=== PATIENT | male | born 1955 | race Caucasian/White ===

== ENCOUNTER 2018-07-15 16:49 | Inpatient (IN) | payer OTHER ==
[~2018-07-15] VITALS: Ht 175.3 cm; Wt 75.0 kg
--- NOTE | ~2018-07-15 | PROC ---
[facility] [address] [place] [address] PROCEDURE REPORT Name: ANDIE DEL VALLE Room: [address] IN ..#: [id number] Admission: 07/15/18 Attend Phys: Wiley Lucas Discharge: 07/20/18 Date of : 53 Report #: [id number] THIS REPORT FOR: //name// For GI report, please see the Provation report in Perceptive 7 content. By: [id number] Records Staff JUDI /ROCKY
[2018-07-15 16:54] VITALS: BP 90/47
[2018-07-15] MEDS ORDERED: FISH OIL 1,001000 M2 PO (17:04)
[2018-07-15] MEDS ORDERED: FLAX SEED OIL1000 MG PO (17:05)
[2018-07-15] MEDS ORDERED: UNICOMPLEX M TA1 TA1 PO (17:05)
--- NOTE | 2018-07-15 17:08 | NUR ---
PT'S FINGER TIPS ARE WHITE WITH NO CAP REFILL. PT REPORTS NEVER HAVING THAT ISSUE BEFORE.
[2018-07-15 17:29] LABS: HEMATOCRIT 38.5 % (42.0-52.0); MCH 34.5 pg (26.0-34.0); MCHC 33.8 g/dL (28.0-37.0); MCV 102.1 fL (80.0-100.0); MPV 9.3 fl. (7.2-11.1); NUCLEATED RBCS 0 /100WBC; PLATELET COUNT* 173 thou/uL (150-400); RBC 3.78 mil/uL (4.50-6.00); RDW-CV 12.7 % (10.5-14.5); WBC 24.3 thou/uL (4.0-11.0)
[2018-07-15 17:53] LABS: ALBUMIN 2.8 g/dL (3.4-5.0); CALCIUM 11.1 mg/dL (8.5-10.1); POTASSIUM 4.1 mmol/L (3.5-5.1); TOTAL BILIRUBIN 2.3 mg/dL (<0.1-1.0); TOTAL PROTEIN 6.3 g/dL (6.4-8.2)
[2018-07-15 18:04] LABS: ABSOLUTE LYMPHOCYTES 4.1 thou/uL (0.8-5.3); ABSOLUTE MONOCYTES 1.7 thou/uL (0.0-1.2); ABSOLUTE NEUTROPHILS 18.5 thou/uL (1.6-8.1)
[2018-07-15 18:07] LABS: LARGE PLATELETS RARE; PLATELET ESTIMATE ADEQUATE
--- NOTE | 2018-07-15 19:09 | NUR ---
RECIEVED REPORT AND ASSUMED CARE OF PT. PHOTOENGRAVING APPRENTICE WITH PT AT THIS TIME. PT BEING ADMITTED TO ICU.
[2018-07-15 19:36] LABS: APTT 25.3 Seconds (25.0-31.3); INR 1.3; PROTIME 13.4 Seconds (9.20-11.50)
--- NOTE | 2018-07-15 20:48 | NUR ---
REPORT GIVEN TO JOHN PAUL GIRON IN ICU. PT BEING ADMITTED TO ICU.
[2018-07-15 20:55] VITALS: BP 98/70
[2018-07-15 22:00] VITALS: BP 101/67
[2018-07-15 23:01] VITALS: BP 98/66
[2018-07-16] VITALS (15 sets, daily range): BP systolic 102–145; BP diastolic 61–81
[2018-07-16 03:13] LABS: HEMATOCRIT 31.5 % (42.0-52.0); HEMOGLOBIN 10.6 gm/dL (14.0-18.0)
--- NOTE | 2018-07-16 06:35 | NUR ---
PATIENT TO ICU BED 4 AT 2101, DENYING PAIN, NAUSEA, SOA. AFEBRILE, BS 87, MAP >65 ON ARRIVAL. NS @100ML/HR RUNNING TO R AC, NOTICED IT HAS INFILTRATED SHORTLY AFTER ARRIVAL. TRIED SWITCHING IVF SITE TO L AC IV SITE, WOULD ALSO NOT FLUSH. DC'S BOTH IV SITES AND STARTED L FOREARM AND R FOREARM 20G IVs, NS @ 200ML/HR RUNNING TO RFA CONTINUOUSLY. BMX2,BLACK IN COLOR, FIRST ONE LOOSE, SECOND BM SOMEWHAT FORMED. PT DENIES PAIN WHILE HAVING BM, DENIES NAUSEA, DIZZINESS GETTING OUT OF BED TO THE COMMODE. ABLE TO PROUCE 250 ML URINE, LIGHT YELLOW IN COLOR, USES THE URINAL, HAS URGENCY. PATIENT ON 2L WHEN HE CAME TO ICU, ON RA SINCE 299 WITH SPO2>90%. ADDED H$H TO MORNING LABS, HB DOWN TO 10.6 DOWN FROM 13. CALL LIGHT WITHIN REACH, ABLE TO TURN SELF IN BED.
[2018-07-16 09:00] LABS: HEMATOCRIT 28.2 % (42.0-52.0); HEMOGLOBIN 9.6 gm/dL (14.0-18.0); MCH 34.7 pg (26.0-34.0); MCV 102.1 fL (80.0-100.0); MPV 9.3 fl. (7.2-11.1); RBC 2.77 mil/uL (4.50-6.00); WBC 14.3 thou/uL (4.0-11.0)
--- NOTE | 2018-07-16 10:09 | EKG ---
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1955 Requested By: Florentino Alford Order Number: [id number] MD: Carlos Tompkins Measurements Intervals [place] Rate: 109 P: 69 NM: 136 QRS: 19 QRSD: 89 T: 88 QT: 341 QTc: 460 Interpretive Statements Sinus tachycardia Atrial premature complex Nonspecific repol abnormality, diffuse leads No previous ECG available for comparison Electronically Signed On 07-16-2018 10:09:31 SOLARIS ADMINISTRATOR by Carlos Tompkins [email or web address] <ELECTRONICALLY SIGNED> By: Carlos Tompkins MD, [facility] 07/16/18 1009 D: 02/1704 04 Carlos Tompkins MD, FACC /EPI
[2018-07-16 10:38] LABS: CREATININE 2.5 mg/dL (0.6-1.3)
[2018-07-16 10:54] LABS: CALCIUM 8.8 mg/dL (8.5-10.1)
--- NOTE | 2018-07-16 12:13 | NUR ---
Nutrition: Per ICU rounds, pancreatitis is better. Pt has GIB from varices likely. K+ 3, Hgb 9.6, alb 2.8, prealb 17.1. Wt: 165#. Pt assessed for nursing risk 2 points. Unsure of wt hx at this time. Pt was in EGD at time of rounds. NPO currently. No nutrition interventions at this time. Will follow for diet advancement, wt, po tolerance, labs, POC. Mild risk for now, follow up 07/21/18.
--- NOTE | 2018-07-16 14:19 | NUR ---
Agree with students observations. Patient tolerated egd well. Remains alert no changes to mentation. Spoke with Dr Lei PT to transfer to [place] PO well. denies pain or SOA.
--- NOTE | 2018-07-16 14:34 | NUR ---
Pt is A&O. Resides at home with his . Normally active and independent. No DME. No hx of HH or SNF. Goal is home at tx. Pt to have an EGD today. Following
--- NOTE | 2018-07-16 18:36 | NUR ---
PATIENT OFF THE FLOOR FOR SHORT TIME DURING EGD. PATIENT TOLERATED WELL. PATIENT HAS BEEN STABLE THROUGHOUT THE SHIFT. CIWA PRECAUTIONS INITIATED. PATIENT HAS BEEN PLEASANT. PATIENT ONLY HAS ONE IV AT THIS TIME. RECIEVED ORDERS TO TRANSFER PATIENT TO ROOM 204.
--- NOTE | 2018-07-16 20:12 | NUR ---
PATIENT TRANSFERRED TO 204 ON A WHEELCHAIR ACCOMPANIED BY HUMAN RESOURCES TALENT MANAGER AT 1999. PERSONAL ITEMS, CHART, UNUSED MEDS SENT WITH PATIENT. VITLAS WNL, PATIENT ABLE TO WALK TO WHEELCHAIR WITH NO DIFFICULTY. WITH PATIENT. REPORT GIVEN TO MACK OCHOA FOR CONTINUED CARE. PT DENIES CONCERNS/QUESTIONS AT THIS TIME.
[2018-07-16 23:08] LABS: HEPATITIS B SURFACE AG Negative (Negative)
[2018-07-17] VITALS: BP 138/68
[2018-07-17 04:00] VITALS: BP 144/79
--- NOTE | 2018-07-17 05:09 | NUR ---
PT TRANSFERRED FROM ICU AROUND 1999 IN WHEELCHAIR. COMPLETED ASSESSMENT CHARTED. ABLE TO MAKE NEEDS KNOWN. AT BEDSIDE. NO C/O PAIN OR DISCOMFORT. UP WITH STANDBY ASSIST DUE TO RISK OF DIZZINESS FROM BLEED. PT RESTING IN BED AT THIS TIME. WILL CONTINUE TO MONITOR.
[2018-07-17 05:23] LABS: HEMATOCRIT 24.6 % (42.0-52.0); HEMOGLOBIN 8.4 gm/dL (14.0-18.0); MCHC 34.1 g/dL (28.0-37.0); MCV 102.5 fL (80.0-100.0); MPV 9.4 fl. (7.2-11.1); RBC 2.39 mil/uL (4.50-6.00); WBC 9.9 thou/uL (4.0-11.0)
[2018-07-17 06:01] LABS: ALBUMIN 2.1 g/dL (3.4-5.0); CREATININE 1.6 mg/dL (0.6-1.3); MAGNESIUM 2.2 mg/dL (1.8-2.4); TOTAL BILIRUBIN 0.6 mg/dL (<0.1-1.0)
[2018-07-17 06:07] LABS: POTASSIUM 2.6 mmol/L (3.5-5.1)
[2018-07-17 08:00] VITALS: BP 131/65
[2018-07-17 11:31] VITALS: BP 135/83
[2018-07-17 15:40] VITALS: BP 140/74
--- NOTE | 2018-07-17 17:18 | NUR ---
PT UP IN ROOM WITH STEADY GAIT. IVF INFUSING. LOW K REPLACED PER PROTOCOL. POOR APPETITE. DENIES ABD PAIN. AT BS AND UPDATED ON PLAN OF CARE
[2018-07-17 20:00] VITALS: BP 140/80
[2018-07-18] VITALS: BP 137/84
--- NOTE | 2018-07-18 03:50 | NUR ---
ASSUMED PT CARE AT 1930. ASSESSMENT COMPLETED CHARTED. ABLE TO MAKE NEEDS KNOWN. NO C/O PAIN OR DISCOMFORT. UP AD MATILDE IN ROOM, IVF INFUSING PER P.O. VSS. PT RESTING IN BED AT THIS TIME. WILL CONTINUE TO MONITOR.
[2018-07-18 04:00] VITALS: BP 129/72
[2018-07-18 06:38] LABS: CALCIUM 7.8 mg/dL (8.5-10.1); CREATININE 1.2 mg/dL (0.6-1.3); MAGNESIUM 2.3 mg/dL (1.8-2.4); POTASSIUM 3.2 mmol/L (3.5-5.1); TOTAL BILIRUBIN 0.5 mg/dL (<0.1-1.0)
[2018-07-18 08:00] VITALS: BP 146/84
[2018-07-18 11:30] VITALS: BP 141/75
[2018-07-18 15:26] VITALS: BP 150/91
--- NOTE | 2018-07-18 17:25 | NUR ---
PT UP IN ROOM WITH STEADY GAIT. TOLERATING REGULAR DIET. DENIES ABD PAIN. IVF INFUSING
[2018-07-18 20:00] VITALS: BP 173/89
[2018-07-19] VITALS: BP 135/75
[2018-07-19 04:00] VITALS: BP 125/64
--- NOTE | 2018-07-19 05:17 | NUR ---
ASSUMED PT CARE AT 1930. ASSESSMENT COMPLETED CHARTED. ABLE TO MAKE NEEDS KNOWN. PT RESTING IN BED AT THIS TIME. NO C/O PAIN OR DISCOMFORT. IV FLUIDS INFUSING PER P.O. UP AD MATILDE, POSS D/C TODAY. WILL CONTINUE TO MONITOR.
[2018-07-19 05:29] LABS: ALBUMIN 1.9 g/dL (3.4-5.0); CALCIUM 7.2 mg/dL (8.5-10.1); CREATININE 1.1 mg/dL (0.6-1.3); MAGNESIUM 1.6 mg/dL (1.8-2.4); POTASSIUM 3.6 mmol/L (3.5-5.1); TOTAL BILIRUBIN 0.3 mg/dL (<0.1-1.0); TOTAL PROTEIN 4.8 g/dL (6.4-8.2)
[2018-07-19 08:37] VITALS: BP 131/86
--- NOTE | 2018-07-19 11:33 | NUR ---
PT A/O, CIWA 0. TELE TRACKING NSR AND ALL VSS ON ROOM AIR. PT DENIES CP, SOA AND ABDOMINAL PAIN. PT TOLERATING PO. STATES BM YESTERDAY WAS BROWN AND BACK TO NORMAL. DENIES ANY BLEEDING. LOOKING FORWARD TO DC IN NEXT DAY OR TWO. EDUCATED ON SAFETY AND PLAN OF CARE. PLEASE SEE ASSESSMENT FOR ADDITIONAL INFORMATION. WILL CONTINUE TO MONITOR
[2018-07-19 12:00] VITALS: BP 143/88
[2018-07-19 20:00] VITALS: BP 132/72
[2018-07-20] VITALS: BP 137/62
--- NOTE | 2018-07-20 01:52 | NUR ---
PT ALERT ORIENTED. ABD SOFT. BS +. DENIES PAIN. NS AT 100MLS/HR. VOIDS DARK YELLOW PER URINAL. ON RA.
[2018-07-20 04:40] LABS: HEMATOCRIT 21.7 % (42.0-52.0); HEMOGLOBIN 7.6 gm/dL (14.0-18.0); MCH 35.2 pg (26.0-34.0); MCHC 34.9 g/dL (28.0-37.0); MPV 8.6 fl. (7.2-11.1); RBC 2.15 mil/uL (4.50-6.00); RDW-CV 12.5 % (10.5-14.5); WBC 7.3 thou/uL (4.0-11.0)
[2018-07-20 05:19] LABS: ALBUMIN 1.7 g/dL (3.4-5.0); CALCIUM 7.1 mg/dL (8.5-10.1); MAGNESIUM 1.4 mg/dL (1.8-2.4); POTASSIUM 3.3 mmol/L (3.5-5.1); TOTAL BILIRUBIN 0.4 mg/dL (<0.1-1.0); TOTAL PROTEIN 4.6 g/dL (6.4-8.2)
[2018-07-20 09:00] VITALS: BP 136/73
--- NOTE | 2018-07-20 10:59 | NUR ---
ASSUMED PT CARE AT 0700 PT IS ALERT AND ORIENTED X 4 PT DENIES PAIN OR SOA ON RA, PT IS UP AD MATILDE PT IS MEDICAL SURGICAL STATUS, PT IS PROGRESSING TOWARDS GOALS PT IS CLEARED FOR DISCHARGE, WILL CONTINUE TO MONITOR
[2018-07-20] MEDS ORDERED: CARAFATE 11 GM/10 M1 PO (11:05)
[2018-07-20] MEDS ORDERED: PANTOPRAZOLE SO40 M1 PO (11:05)
--- NOTE | 2018-07-20 11:08 | PATH ---
[address] [address] PATHOLOGY RPT PROCEDURE Name: ANDERS TAMAYO Room: [address] IN M.R.#: [id number] Admission: 07/15/18 Date of : 53 Discharge: Report #: [id number] Path Case #: [id number] LCA Accession Number: [id number] . 01 Material submitted: . PART A: DUODENAL BIOPSY PART B: DISTAL ESOPHAGUS BIOPSY . 01 Clinical history: . None provided . 02 Diagnosis: A. Duodenal biopsy: - Moderate, nonspecific active duodenitis, negative for granulomas, viral inclusions and dysplasia/adenomatous change. . B. Distal esophagus biopsy: - Minimal, benign esophageal mucosa and predominantly benign glandular/columnar mucosa with abundant goblet cells compatible with Guo's metaplasia and with mild chronic and active inflammation typical of reflux, negative for granulomas and dysplasia. . (MARLON:danielle; 07/19/2018) MBRosaura/07/19/2018 . 02 Electronically signed: . Brcye Briones MD, Pathologist NPI- [id number] . 01 Gross description: . A. Received in formalin labeled "Anders Tamayo, duodenal biopsy," are 4 segments of morales soft tissue measuring 0.9 x 0.6 x 0.2 cm in aggregate dimensions and ranging from 0.3 to 0.4 cm in maximum dimension. The specimen is submitted entirely in cassette A1. . B. Received in formalin labeled "Anders Tamayo, distal esophagus biopsy," is a single segment of morales soft tissue measuring 0.3 cm in maximum dimension. The specimen is entirely submitted in cassette B1. (TSD; 07/16/2018) TOB/TOB . 02 Pathologist provided ICD-10: K29.80, K22.70 . 02 CPT . 959935, 788077 Specimen Comment: A courtesy copy of this report has been sent to Specimen Comment: [phone], , [place] [address] PATHOLOGY RPT PROCEDURE Name: ANDERS TAMAYO Room: [address] IN ..#: [id number] Admission: 07/15/18 Date of : 53 Discharge: Report #: [id number] Path Case #: [id number] Specimen Comment: Report sent to ,DR GUTIERREZ / DR VILLA Specimen Comment: A duplicate report has been generated due to demographic updates. Performed at: 01 [facility] [address], [place], [place] [id number] MD Brooks Rao MD Phone: [phone] Performed at: 02 [facility] [place] [address] [place], [place] [id number] MD Bryce Briones MD Phone: [phone]
--- NOTE | 2018-07-20 11:36 | NUR ---
Pt discharging to home today, family to provide dc transportation. CM provided Pt with Good Rx coupons for his prescriptions, Pt states that he will be able to afford his meds.
[2018-07-20 11:37] VITALS: BP 104/74
--- NOTE | 2018-07-20 18:30 | CON ---
[address] [address] CONSULTATION Name: ANDIE DEL VALLE Room: [address] IN .R.#: [id number] Admission: 07/15/18 Attend Phys: Wiley Lucas Discharge: 07/20/18 Date of : 53 Report #: [id number] THIS REPORT FOR: //name// CC: Wayne Estrada DATE OF SERVICE: 07/15/2018 ADDENDUM This is a 63-year-old male who came in to hospital with GI bleed and found to have sepsis and pancreatitis. The patient reports symptoms of nausea, vomiting and hematemesis followed by melanotic stool the following day. He reports history of chronic NSAID use and his kidney function was compromised. He also has leukocytosis and CT suggestive of thickening of the colon in the sigmoid region. We will perform an upper endoscopy as we continue the patient on PPI. We will continue monitoring lipase and at some point, we will consider a colonoscopy as the patient has never had a colonoscopy in the past. <ELECTRONICALLY SIGNED> By: Pop Carpio MD 07/20/18 1830 1020 [id number] Carpio MD /nt
--- NOTE | 2018-07-20 18:30 | CON ---
[address] [address] CONSULTATION Name: ANDIE DEL VALLE Room: [address]#: [id number] Admission: 07/15/18 Attend Phys: Wiley Lucas Discharge: 07/20/18 Date of : 53 Report #: [id number] THIS REPORT FOR: //name// CC: Wayne Estrada DICTATED BY: Breanna Durán [facility] DATE OF SERVICE: 07/16/2018 The patient does not have a PCP. Please note at the time of this dictation, the patient was seen and physically examined by myself. REASON FOR CONSULTATION: GI bleed, abnormal CT findings. HISTORY OF PRESENT ILLNESS: This is a 63-year-old male presented to the Emergency Room with nausea and vomiting which started on Thursday evening after he got home from work. He started noticing seeing black coffee-ground emesis that evening that subsequently became less frequent on Thursday and into when he started having some black stools, which were more frequent than what he normally has, which were 3-4. Normally, his bowels move about once a day. The patient has never seen a GI doctor or had any endoscopy studies done at this time. The patient also uses ibuprofen 800 mg daily for his chronic back pain and does admit to drinking 1.75 of the Honey whiskey small bottles straight two of those a day along with a mug and he did not quantify how big the mug was of Barbadian Mist with Coke daily. He states his last drink was Thursday evening before he started vomiting. He states he has done this for many years. ALLERGIES: PENICILLIN. MEDICATIONS FROM HOME: None. PAST MEDICAL HISTORY: Back pain, chronic. PAST SURGICAL HISTORY: Negative. FAMILY HISTORY: Mother, breast cancer. SOCIAL HISTORY: Tobacco use. He is cutting back. Alcohol as mentioned above yes, about 3 drinks of whiskey bourbon daily. REVIEW OF SYSTEMS: Twelve-point review of systems is essentially negative except what is mentioned in the HPI. PHYSICAL EXAMINATION: VITAL SIGNS: Temperature 37, pulse 84, respirations 16, blood pressure 104/74. [place] [address] CONSULTATION Name: ANDIE DEL VALLE Room: [address]#: [id number] Admission: 07/15/18 Attend Phys: Wiley Lucas Discharge: 07/20/18 Date of : 53 Report #: [id number] HEART: Regular rate and rhythm. LUNGS: Clear. ABDOMEN: Soft, positive bowel sounds in all 4 quadrants with some slight epigastric tenderness noted to palpation. LABORATORY DATA: Hemoglobin on admission was 13, this morning he is 10.6. White count is 24.3, platelets is 173, lipase is 479. Total bilirubin is 2.3, alkaline phosphatase 97, ALT 35, AST is 50. PT is 13.4, INR is 1.3. CT of the abdomen and pelvis shows inflammatory changes along the pancreas, but no definitive mass, cholelithiasis, diverticulosis with wall thickening along the sigmoid colon. IMPRESSION: 1. Nausea and vomiting. 2. Hematemesis. 3. Melanotic stool. 4. Epigastric pain. 5. Abnormal CT thickened sigmoid colon. 6. Pancreatic stranding noted on CT and elevated lipase. 7. Chronic kidney disease. 8. Family history of breast cancer. 9. History of alcohol abuse. PLAN: 1. EGD today with Dr. Carpio. 2. Continue his Protonix. 3. We will decide later if colonoscopy is warranted at the time of this admission or to do as an outpatient since he has no complaints at this time. 4. Further recommendations to be made after the procedure. Thank you for allowing us to participate in this patient's care. Please do not hesitate to call with any questions in regard to this consult. This is a 63-year-old male who came in to hospital with GI bleed and found to have sepsis and pancreatitis. The patient reports symptoms of nausea, vomiting and hematemesis followed by melanotic stool the following day. He reports history of chronic NSAID use and his kidney function was compromised. He also has leukocytosis and CT suggestive of thickening of the colon in the sigmoid region. We will perform an upper endoscopy as we continue the patient on PPI. We will continue monitoring lipase and at some point, we will consider a colonoscopy as the patient has never had a colonoscopy in the past. <ELECTRONICALLY SIGNED> By: Pop Carpio MD 07/20/18 1830 0933 [id number] Carpio MD /nt
== END 2018-07-20 12:20 | disposition home or self-care (01) | DRG 871 ==
LOC: M.ERS 16:49 → M.TBA-ER 19:11 → M.ICU 19:11 → M.2W 07-16 20:15
PROVIDERS: Internal Medicine; Nurse Practitioner Family; ADMIT Internal Medicine
PROC: 0DB98ZX Excision of Duodenum, Via Natural or Artificial Opening Endoscopic, Diagnostic (ICD-10-PCS; principal; 2018-07-16)
PROC: 0DB58ZX Excision of Esophagus, Via Natural or Artificial Opening Endoscopic, Diagnostic (ICD-10-PCS; principal; 2018-07-16)
DX: A41.9 Sepsis, unspecified organism (principal); K85.20 Alcohol induced acute pancreatitis without necrosis or infection; K26.4 Chronic or unspecified duodenal ulcer with hemorrhage; N17.9 Acute kidney failure, unspecified; N18.9 Chronic kidney disease, unspecified; K52.9 Noninfective gastroenteritis and colitis, unspecified; K21.0 Gastro-esophageal reflux disease with esophagitis; K44.9 Diaphragmatic hernia without obstruction or gangrene; K80.20 Calculus of gallbladder without cholecystitis without obstruction; E87.6 Hypokalemia; K22.70 Barrett's esophagus without dysplasia; G89.29 Other chronic pain; D64.9 Anemia, unspecified; M54.9 Dorsalgia, unspecified; F10.10 Alcohol abuse, uncomplicated; F17.210 Nicotine dependence, cigarettes, uncomplicated; Z79.899 Other long term (current) drug therapy; Z88.0 Allergy status to penicillin; Z80.8 Family history of malignant neoplasm of other organs or systems; Z71.41 Alcohol abuse counseling and surveillance of alcoholic; Z23 Encounter for immunization

== ENCOUNTER 2021-01-20 12:43 | Inpatient (IN) | payer MEDICARE, OTHER ==
[~2021-01-20] VITALS: Ht 175.3 cm; Wt 63.5 kg
[~2021-01-20 12:43] MED LIST: CARAFATE 11 GM/10 M1 PO; FISH OIL 1,001000 M2 PO; FLAX SEED OIL1000 MG PO; PANTOPRAZOLE SO40 M1 PO; UNICOMPLEX M TA1 TA1 PO
[2021-01-20 12:51] VITALS: BP 86/58
[2021-01-20] MEDS ORDERED: CARVEDILOL12.5 MG PO (12:58)
[2021-01-20 13:29] LABS: BE -15.3 mmol/L (-2 to +3); PCO2 VENOUS 43.2 mmHg (41.0-51.0); PO2 VENOUS 36.5 mmHg (35.0-45.0)
[2021-01-20 13:30] LABS: HEMATOCRIT 35.3 % (42.0-52.0); HEMOGLOBIN 11.6 gm/dL (14.0-18.0); MCH 31.9 pg (26.0-34.0); MCV 96.7 fL (80.0-100.0); MPV 7.8 fl. (7.2-11.1); NUCLEATED RBCS 0 /100WBC; PLATELET COUNT* 305 thou/uL (150-400); RBC 3.65 mil/uL (4.50-6.00); RDW-CV 13.1 % (10.5-14.5); WBC 4.6 thou/uL (4.0-11.0)
[2021-01-20 13:41] LABS: CALCIUM 7.6 mg/dL (8.5-10.1)
[2021-01-20 13:46] LABS: ALBUMIN 1.5 g/dL (3.4-5.0); TOTAL PROTEIN 5.8 g/dL (6.4-8.2)
[2021-01-20 14:05] LABS: ABSOLUTE LYMPHOCYTES 0.6 thou/uL (0.8-5.3); ABSOLUTE MONOCYTES 0.2 thou/uL (0.0-1.2); ABSOLUTE NEUTROPHILS 3.7 thou/uL (1.6-8.1); ANISOCYTOSIS 1+; PLATELET ESTIMATE ADEQUATE; POIKILOCYTOSIS 1+
--- NOTE | 2021-01-20 15:44 | EKG ---
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1955 Requested By: Lore Sibley Order Number: [id number] MD: Anders De León Measurements Intervals [place] Rate: 93 P: 64 NE: 115 QRS: -29 QRSD: 64 T: -73 QT: 399 QTc: 497 Interpretive Statements Sinus rhythm Low voltage, extremity and precordial leads Compared to ECG 07/15/2018 17:05:33 Low QRS voltage now present Inferior Q waves now present Sinus tachycardia no longer present Atrial premature complex(es) no longer present Electronically Signed On 01-20-2021 15:44:47 CDT by Anders De León [email or web address] <ELECTRONICALLY SIGNED> By: Anedrs De León MD, [facility] 01/20/21 1544 1346 1346 Anders De León MD, [facility] /EPI
[2021-01-20 18:00] VITALS: BP 95/65
--- NOTE | 2021-01-20 20:16 | NUR ---
RCV'D PT FROM OR TO PACU. PT IS S/P EXPLORATORY LAPAROTOMY. PT IS INTUBATED, FIO2 AT 50% ON VENT. PT NONRESPONSIVE, W/GCS OF 3. CORE TEMP AT 90.5 AFTER BOJORQUEZ TEMP PROBE PLACED. LUNG SOUNDS DIMINISHED. HEART TONES DISTANT. BOWEL SOUNDS ABSENT. PT HAS 2 KOLBY DRAINS NOTED TO ABDOMEN W/SEROSANGUINOUS DRAINAGE. PT'S EXTREMITIES ARE COLD AND MOTTLED. UNABLE TO DOPPLE PULSES IN BILATERAL PEDAL/POST TIBIAL AREA. BILATERAL RADIAL PULSES DOPPLED. PT HAS LEFT BRACHIAL ART LINE IN PLACE. UNABLE TO OBTAIN O2 SAT PT'S CORE TEMP TOO LOW. WAVEFORM ON ART LINE SHOWING B/P AFTER PT'S ARRIVAL TO PACU, BUT LATER UNABLE TO OBTAIN WAVEFORM TO SHOW A B/P. NG TUBE TO LIS. LEVO GTT CURRENTLY AT 15 MCG/MN. ANESTHESIA WEANED PT OFF KALPESH GTT SLOWLY DURING RECOVERY IN PACU. DR. MERCADO AWARE OF CRITICAL LAB RESULTS. NO NEW ORDERS. PER DR. MERCADO, CONTINUE W/LEVO GTT AT CURRENT RATE BUT DO NOT INCREASE. FAMILY IN/OUT AT BEDSIDE, UPDATED ON PLAN OF CARE. FAMILY WANTING PT TO BE COMFORTABLE. DR. MERCADO NOTIFIED, COMFORT CARE ORDERS RCV'D. FATHER VALERIA HERE FOR LAST RITES. PER FAMILY REQUEST, PT WILL BE MOVED UP TO A PRIVATE ROOM FOR EXTUBATION. WILL CONTINUE TO MONITOR PT CLOSELY.
[2021-01-20 21:06] LABS: BE -23.5 mmol/L (-2 to +3); PCO2 28.7 mmHg (35.0-45.0)
[2021-01-20 21:10] LABS: PO2 456.5 mmHg (75.0-100.0); pH 6.963 (7.340-7.450)
[2021-01-20 21:27] LABS: MAGNESIUM 1.5 mg/dL (1.8-2.4); POTASSIUM 3.5 mmol/L (3.5-5.1)
--- NOTE | 2021-01-20 23:45 | NUR ---
PT TRANSFERRED UPSTAIRS TO ROOM 222 VIA BED. MINI REPORT GIVEN TO MACK ACKERMAN. FAMILY GIVEN SUPPORT DURING RECOVERY PROCESS. ALL BELONGINGS SENT UPSTAIRS W/PT. LEVO GTT DC'D AFTER ARRIVAL TO ROOM 222. FAMILY INFORMED OF PLAN OF CARE.
--- NOTE | 2021-01-21 00:15 | NUR ---
PT TO ROOM AT 2345 WHILE INTUBATED AND BEING BAGGED. FAMILY AT BEDSIDE, ET REMOVED PER RT. IV LEVOPHED TURNED OFF. PT AT 9. PRONOUNCED BY MYSELF AND NURSING DIETARY DIRECTOR. IV LINES REMOVED, BOJORQUEZ REMOVED AND KOLBY X2 TO ABDOMIN REMOVED. WILL NOTIFY MTN.
--- NOTE | 2021-01-22 07:06 | OP ---
[facility] [address] [place] [address] OPERATIVE REPORT Name: ANDIE DEL VALLE Room: [address] IN [facility]#: [id number] Admission: 01/20/21 Attend Phys: Wiley Lucas Discharge: 01/21/21 Date of : 53 Report #: [id number] THIS REPORT FOR: cc: Wayne Silverman Bradley L. DO Patterson,Sandoval Esparza MD ~ DATE OF SURGERY: 01/20/2021 PREOPERATIVE DIAGNOSIS: Acute abdomen with perforated viscus. POSTOPERATIVE DIAGNOSIS: Acute abdomen with intraabdominal abscess. OPERATIONS: Exploratory laparotomy with drainage of peritonitis. SURGEON: Sandoval Hawkins MD. ANESTHESIA: General. ESTIMATED BLOOD LOSS: Minimal. SPECIMENS: None. DRAINS: 19-Swedish round x 2. DESCRIPTION OF PROCEDURE: After informed consent was obtained, the patient was brought to the operating room and placed supine. SCDs were placed and working, preoperative antibiotics were administered, general anesthesia was induced. The abdomen was prepped and draped in the usual sterile fashion. A Villegas catheter was placed. Midline laparotomy incision was made from the xiphoid to the umbilicus. Fascia was incised. I then began by examining the abdomen. The liver appeared normal. The stomach appeared normal anteriorly upon inspection. Spleen appeared normal. The small bowel was run proximally and distally and was normal. The ascending and transverse colon and descending colon were normal. Gallbladder was normal. He had pus emanating from the lesser curvature of the stomach. I grasped this area and began dissecting bluntly. There was a significant amount of pus emanating from this area. However, I was not able to find any perforation in the stomach. I examined the duodenum. There was no duodenal perforation. The anesthesiologist placed an NG tube down. I could palpate the NG tube. I asked him to insufflate the stomach with air. He was able to do this and I was not able to see any sort of leak anywhere. I then made an incision in the omentum to enter the lesser sac. The lesser sac was scarred in and I was not able to get my finger into the lesser sac from the omentum. I was able to see it from the lesser curvature side and there [place] [address] OPERATIVE REPORT Name: ANDIE DEL VALLE Room: [address] IN [facility].#: [id number] Admission: 01/20/21 Attend Phys: Wiley Lucas Discharge: 01/21/21 Date of : 53 Report #: [id number] perforation, but this was undoubtedly where the pus was coming from. This may have been a microperforation that had sealed over and caused an abscess. I therefore elected to drain this area. A 19-Swedish drain was placed into the lesser sac. Another 19-Swedish round drain was placed in the right pericolic gutter and in the gastrohepatic space. The abdomen was copiously irrigated with normal saline. I did not see any other abnormalities or any areas of perforation. The fascia was then closed with 0 looped PDS in running fashion. Skin was closed with jerry. Sterile dressings were applied. COMPLICATIONS: None. DISPOSITION: The patient will be taken to ICU in critical condition. <ELECTRONICALLY SIGNED> By: Sandoval Hawkins MD 01/22/21 0706 1847 1908Sandoval Hawkins MD /nt
== END 2021-01-21 01:58 | DRG 853 ==
LOC: M.ERS 12:43 → M.TBA-ER 14:39 → M.2W 23:47
PROVIDERS: Anesthesiology; Family Medicine; Nurse Practitioner Family; ADMIT Internal Medicine; ATTEND Internal Medicine
PROC: 0BH17EZ Insertion of Endotracheal Airway into Trachea, Via Natural or Artificial Opening (ICD-10-PCS; principal; 2021-01-20)
PROC: 0D9 Gastrointestinal System, Drainage (ICD-10-PCS; principal; 2021-01-20)
PROC: 0WJG0ZZ Inspection of Peritoneal Cavity, Open Approach (ICD-10-PCS; principal; 2021-01-20)
PROC: 5A1935Z Respiratory Ventilation, Less than 24 Consecutive Hours (ICD-10-PCS; principal; 2021-01-20)
DX: A41.9 Sepsis, unspecified organism (principal); K63.1 Perforation of intestine (nontraumatic); K65.1 Peritoneal abscess; E43 Unspecified severe protein-calorie malnutrition; N17.0 Acute kidney failure with tubular necrosis; G89.29 Other chronic pain; M54.9 Dorsalgia, unspecified; I10 Essential (primary) hypertension; E87.6 Hypokalemia; F10.20 Alcohol dependence, uncomplicated; F17.200 Nicotine dependence, unspecified, uncomplicated; E83.42 Hypomagnesemia; R27.0 Ataxia, unspecified; Z20.822 Contact with and (suspected) exposure to COVID-19; Z88.0 Allergy status to penicillin; Z68.20 Body mass index [BMI] 20.0-20.9, adult; Z79.899 Other long term (current) drug therapy; Z87.19 Personal history of other diseases of the digestive system; Z51.5 Encounter for palliative care; I95.89 Other hypotension